=== PATIENT | female | born 1935 | race African-American/Black ===

== ENCOUNTER 2017-10-26 12:20 | Inpatient (IN) | payer OTHER ==
[~2017-10-26] VITALS: Ht 157.5 cm; Wt 115.7 kg
--- NOTE | ~2017-10-26 | 2DMMODE ---
[facility] [address] [place] [address] 2 D/M-MODE ECHOCARDIOGRAM Name: BAILEYEZIO Room #: 441-P ADM IN M.R.#: [id number] Admission: 10/26/17 Attend Phys: Fredrick Mccoy MD Discharge: Date of : 31 Date of Service: 10/27/17 1039 Report #: [id number] THIS REPORT FOR: //name// APPROVED REPORT Study performed: 10/27/2017 09:16:41 EXAM: Comprehensive 2D, Doppler, and color-flow Echocardiogram Patient Location: Bedside Room #: [facility] Status: routine BSA: 2.12 HR: 68 bpm BP: 121/68 mmHg Other Information Study Quality: Fair Indications Dyspnea 2D Dimensions RVDd: 38.08 mm LVEF(%): 59.85 (>50%) IVSd: 10.40 (7-11mm) LVOT Diam: 22.03 (18-24mm) LVDd: 50.48 mm PWd: 10.51 (7-11mm) Ascending Ao: 36.29 (22-36mm) LVDs: 34.32 (25-40mm) Aortic Root: 36.74 mm IVC: 21.00 mm Andres's LVEF: 59.85 % Volumes Left Atrial Volume (Systole) Single Plane 4CH: 38.74 mL Single Plane 2CH: 31.02 mL LA ESV Index: 19.00 mL/m2 Aortic Valve AoV Peak Adama.: 1.41 m/s AO Peak Gr.: 7.95 mmHg LVOT Max P.30 mmHg LVOT Max V: 1.26 m/s CHRIS Vmax: 3.39 cm2 Mitral Valve E/A Ratio: 0.7 MV Decel. Time: 411.57 ms MV E Max Adama.: 0.71 m/s [facility] [place] [address] 2 D/M-MODE ECHOCARDIOGRAM Name: EZIO BAILEY Room #: 441-P [facility] IN .R.#: [id number] Admission: 10/26/17 Attend Phys: Fredrick Mccoy MD Discharge: Date of : 31 Date of Service: 10/27/17 1039 Report #: [id number] MV A Adama.: 1.01 m/s MV PHT: 119.36 ms IVRT: 138.41 ms Pulmonary Valve PV Peak Adama.: 0.96 m/s PV Peak Gr.: 3.71 mmHg Pulmonary Vein P Vein S: 0.51 m/s P Vein A: 0.31 m/s P Vein D: 0.36 m/s P Vein A Dur.: 166.1 msec P Vein S/D Ratio: 1.42 Tricuspid Valve TR Peak Adama.: 2.94 m/s TR Peak Gr.: 34.53 mmHg PA Pressure: 45.00 mmHg Left Ventricle The left ventricle is normal size. There is normal LV segmental wall motion. There is normal left ventricular wall thickness. The left ventricular systolic function is normal. The left ventricular ejection fraction is within the normal range. LVEF is 60-65%. Grade I - abnormal relaxation pattern. Right Ventricle The right ventricle is normal size. The right ventricular systolic function is normal. Atria The left atrium size is normal. The right atrium size is normal. Aortic Valve The aortic valve is mildly sclerotic No aortic regurgitation is present. There is no aortic valvular stenosis. Mitral Valve The mitral valve is normal in structure. Trace mitral regurgitation. No evidence of mitral valve stenosis. Tricuspid Valve The tricuspid valve is normal in structure. There is trace tricuspid regurgitation. The right atrial pressure is estimated at 40mmHg. There is moderate pulmonary hypertension. Pulmonic Valve [address] [address] 2 D/M-MODE ECHOCARDIOGRAM Name: EZIO BAILEY Room #: 441-P [facility] IN ..#: [id number] Admission: 10/26/17 Attend Phys: Fredrick Mccoy MD Discharge: Date of : 31 Date of Service: 10/27/17 1039 Report #: [id number] The pulmonary valve is normal in structure. Trace pulmonic regurgitation. Great Vessels The aortic root is normal in size. IVC is dilated and collapses >50% with inspiration. Pericardium There is no pericardial effusion. <Conclusion> The left ventricular systolic function is normal. There is normal LV segmental wall motion. LVEF is 60-65%. Grade I diastolic dysfunction The aortic valve is mildly sclerotic. No aortic regurgitation or stenosis The mitral valve is normal in structure. Trace mitral regurgitation. Pulmonary artery pressure of 40mmHg No pericardial effusion <ELECTRONICALLY SIGNED> By: Wesly Bowers MD, FACC 10/27/17 1039 1039 1039 Wesly Bowers MD, FACC /INF
--- NOTE | ~2017-10-26 | D ---
[facility] [place] [address] DISCHARGE SUMMARY Name: EZIO BAILEY Room #: 441-P [facility] IN M.R.#: [id number] Admission: 10/26/17 Attend Phys: Fredrick Mccoy MD Discharge: 10/31/17 Date of : 33 Report #: [id number] THIS REPORT FOR: //name// CC: Fredrick FREDERICK unknown DATE OF SERVICE: 10/31/2017 HISTORY OF PRESENT ILLNESS: The patient is an 82-year-old female with no major health problems, who came to the hospital with generalized weakness. Please refer to the admission H and P for details. In brief, the patient had generalized weakness, and no other specific complaints. On examination, the patient was found to have bilateral lower extremity edema. CHF was also suspected. HOSPITALIZATION COURSE: The patient was hospitalized. She had cardiac echo that showed normal ejection fraction, and diastolic dysfunction. Pulmonary artery pressure was moderately elevated. Based on clinical presentation, the patient was already started on IV Lasix. She had very good response. Lower extremity swelling eventually resolved. The patient felt better. The patient was seen and evaluated by Physical Therapy. She was also seen by geriatrics team. Due to her age, morbid obesity, and self-care deficit, it was advised to transfer the patient to the long term facility for further rehab. Currently, the patient's condition is acceptable as documented in the patient's chart. DISCHARGE DIAGNOSES: 1. Generalized weakness, multifactorial, including morbid obesity, and advanced age. Normal TSH, and no major abnormalities on the blood work. 2. Self-care deficit. 3. Congestive heart failure with diastolic dysfunction. Cardiac echo showed left ventricular ejection fraction of 65%, grade 1 diastolic dysfunction and mild pulmonary hypertension. Good response on Lasix. 4. Hypokalemia, we will replace. DISCHARGE MEDICATIONS: Lasix 40 mg a day, potassium supplementation 20 mEq a day, multivitamins per home regimen. DISPOSITION: The patient is discharged to the long term facility. [facility] [address] [place] [address] DISCHARGE SUMMARY Name: LYNNEZIO Eduarda Room #: 441-P [facility]#: [id number] Admission: 10/26/17 Attend Phys: Fredrick Mccoy MD Discharge: 10/31/17 Date of : 31 Report #: [id number] FOLLOWUP PLAN: Follow up with the primary care physician in 1-2 weeks. <ELECTRONICALLY SIGNED> By: Trupti Ghosh MD 11/01/17 0746 0917 0932 Trupti Ghosh MD /nt
[2017-10-26 12:20] VITALS: BP 148/85
[~2017-10-26 12:20] MED LIST: CENTRUM COMPLE1 EACH PO; COUMADIN PO; DRONABINOL5 MG PO; FLORANEX TABLE1 EACH PO; JUVEN PACKET1 EACH PO; MAG-OX 400 TAB400 M1 PO; NEURONTIN 300300 M1 PO; OXYCODONE HCL5 M1 PO; POTASSIUM CHLO20 ME1 PO; QUESTRAN PACKET4 GM PO; REMERON15 M1 PO; VENTOLIN17 GM INH; VITAMIN C + RO500 MG PO; VITAMIN D 11000 UNIT PO; ZINC SULFATE 2220 M1 PO
[2017-10-26 13:47] LABS: HEMATOCRIT 34.9 % (37.0-47.0); HEMOGLOBIN 11.3 gm/dL (12.0-15.0); MCH 24.7 pg (26.0-34.0); MCHC 32.3 g/dL (28.0-37.0); MCV 76.5 fL (80.0-100.0); RBC 4.56 mil/uL (4.20-5.00); RDW 15.8 % (10.5-14.5); WBC 5.9 thou/uL (4.0-11.0)
[2017-10-26 14:00] LABS: PROTIME 10.7 Seconds (9.3-11.4)
[2017-10-26 15:14] VITALS: BP 119/87
[2017-10-26 15:24] VITALS: BP 131/76
[2017-10-26 16:42] VITALS: BP 152/73
[2017-10-26 20:11] VITALS: BP 119/59
[2017-10-27 00:26] VITALS: BP 121/62
[2017-10-27 05:22] VITALS: BP 121/68
[2017-10-27 05:25] VITALS: BP 121/68
[2017-10-27 05:47] LABS: MCH 24.8 pg (26.0-34.0); MCHC 32.3 g/dL (28.0-37.0); MCV 76.7 fL (80.0-100.0); RBC 4.04 mil/uL (4.20-5.00); RDW 15.5 % (10.5-14.5); WBC 5.2 thou/uL (4.0-11.0)
[2017-10-27 06:00] LABS: CALCIUM 9.1 mg/dL (8.5-10.1); CREATININE 0.6 mg/dL (0.6-1.0); POTASSIUM 3.9 mmol/L (3.5-5.1)
[2017-10-27 07:12] VITALS: BP 121/65
[2017-10-27 14:12] LABS: TSH 0.293 uIU/mL (0.358-3.740)
[2017-10-27 15:50] VITALS: BP 127/68
[2017-10-27 16:49] LABS: ALBUMIN 3.3 g/dL (3.4-5.0); CALCIUM 9.5 mg/dL (8.5-10.1); CREATININE 0.7 mg/dL (0.6-1.0); MAGNESIUM 1.8 mg/dL (1.8-2.4); TOTAL BILIRUBIN 0.5 mg/dL (<0.1-1.0); TOTAL PROTEIN 6.2 g/dL (6.4-8.2)
[2017-10-27 20:16] VITALS: BP 134/69
[2017-10-28 04:50] VITALS: BP 131/68
[2017-10-28 07:05] VITALS: BP 133/70
[2017-10-28 15:42] VITALS: BP 127/72
[2017-10-28 18:48] VITALS: BP 127/70
[2017-10-29 03:14] VITALS: BP 140/62
[2017-10-29 06:52] LABS: CALCIUM 9.9 mg/dL (8.5-10.1); CREATININE 0.7 mg/dL (0.6-1.0); POTASSIUM 3.2 mmol/L (3.5-5.1)
[2017-10-29 15:35] VITALS: BP 125/78
[2017-10-29 19:37] VITALS: BP 143/78
[2017-10-30 05:08] VITALS: BP 150/90
[2017-10-30 07:35] VITALS: BP 129/68
[2017-10-30 17:00] VITALS: BP 121/56
[2017-10-30 19:23] VITALS: BP 112/69
[2017-10-31 05:35] VITALS: BP 97/55
[2017-10-31 06:37] LABS: CALCIUM 9.9 mg/dL (8.5-10.1); CREATININE 0.6 mg/dL (0.6-1.0); POTASSIUM 3.5 mmol/L (3.5-5.1)
[2017-10-31 07:09] VITALS: BP 114/65
[2017-10-31] MEDS ORDERED: LASIX 40 MG TAB40 M1 PO (09:20)
[2017-10-31] MEDS ORDERED: MIRALAX17 GM PO (09:20)
[2017-10-31] MEDS ORDERED: POTASSIUM20 PO (09:20)
[2017-10-31 16:20] VITALS: BP 127/77
== END 2017-10-31 18:58 | DRG 553 ==
LOC: ER 12:20 → EROBS 15:10 → 4S 15:10
PROVIDERS: Hospitalist; Internal Medicine Endocrinology, Diabetes & Metabolism; Physician Assistant; Registered Nurse
DX: M19.90 Unspecified osteoarthritis, unspecified site (principal); I50.31 Acute diastolic (congestive) heart failure; Z68.42 Body mass index [BMI] 45.0-49.9, adult; E44.1 Mild protein-calorie malnutrition; I11.0 Hypertensive heart disease with heart failure; Z60.2 Problems related to living alone; E66.01 Morbid (severe) obesity due to excess calories; E87.6 Hypokalemia; Z86.718 Personal history of other venous thrombosis and embolism
CPT/HCPCS: 10195

== ENCOUNTER 2017-12-19 17:26 | Emergency (ER) | payer OTHER ==
[~2017-12-19 17:26] MED LIST changes: +LASIX 40 MG TAB40 M1 PO; +MIRALAX17 GM PO; +POTASSIUM20 PO
[2017-12-19 17:27] VITALS: BP 141/85
[2017-12-19] MEDS ORDERED: MEDROLDOSEPACK PO (19:17)
[2017-12-19] MEDS ORDERED: LIORESAL 10 MG10 MG PO (19:17)
[2017-12-19] MEDS ORDERED: HYDROCODONE-AP1 EAC6 PO (19:17)
[2018-06-07] MEDS ORDERED: MACROBID 100 M100 M3 PO (02:48)
[2018-06-09] MEDS ORDERED: PROTONIX 20 MG20 M1 PO (08:38)
[2018-06-09] MEDS ORDERED: IBUPROFEN 400400 M2 PO (08:38)
== END 2017-12-19 23:09 | disposition home or self-care (01) ==
LOC: ER 17:26
DX: M54.32 Sciatica, left side (principal); M19.90 Unspecified osteoarthritis, unspecified site; Z87.01 Personal history of pneumonia (recurrent)

== ENCOUNTER 2018-08-19 12:36 | Inpatient (IN) | payer OTHER ==
[~2018-08-19] VITALS: Ht 157.5 cm; Wt 93.9 kg
--- NOTE | ~2018-08-19 | EKG ---
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1935 Requested By: Snow Acevedo Order Number: [id number] MD: Wesly Bowers Measurements Intervals [place] Rate: 99 P: 53 IN: 177 QRS: -75 QRSD: 102 T: 17 QT: 402 QTc: 516 Interpretive Statements Sinus tachycardia Ventricular premature complexes Inferolateral infarct, age indeterminate Prolonged QT interval Compared to ECG 06/06/2018 22:57:57 Ventricular premature complex(es) now present Criteria for inferolateral infarct are now present Electronically Signed On 08-20-2018 8:17:26 CDT by Wesly Bowers [email or web address] <ELECTRONICALLY SIGNED> By: Wesly Bowers MD, [facility] 08/20/18 0817 1402 1402 Wesly Bowers MD, [facility] /EPI
--- NOTE | ~2018-08-19 | HC ---
[facility] [address] [address] CONSULTATION Name: EZIO BAILEY Room #: 421-P ADM IN M.R.#: [id number] Admission: 08/19/18 Attend Phys: Mehul Fournier MD Discharge: Date of : 33 Report #: [id number] THIS REPORT FOR: //name// CC: YOLY physician/PCP Mehul Fournier The patient of Dr. Fournier, [facility], room 421. SUBJECTIVE: An 83-year-old black female with a history of recent constipation admitted for small-bowel obstruction. The patient was found to have abnormal thyroid function studies and a thyroid nodule on ultrasound. Retrospectively, the patient states that "many years ago" after a , she had apparently a hemithyroidectomy for unknown disease. She has never been on thyroid replacement and her thyroid function has apparently never been reevaluated. The patient has no other family history of thyroid or endocrine disease. At admission, the patient had hypercalcemia and hypophosphatemia, which appears to be resolving with rehydration. Thyroid ultrasound showed a 3-cm solid right thyroid nodule without other elements being described. Thyroid function studies showed an elevated free T4 of 1.8 and a depressed TSH of 0.154. The TSH was also abnormal, but less so when last checked in October. Historically, the patient has no signs or symptoms of hyperthyroidism. She has not been on amiodarone or any other conflicting substances. CURRENT MEDICATIONS: At the time of consultation are as per chart. OBJECTIVE: LABORATORY DATA: As above. PHYSICAL EXAMINATION: Thin 83-year-old black female in no acute distress. The patient is afebrile, heart rate 89 and regular, blood pressure 120/76. Skin is warm and moist with slightly decreased turgor. Deep tendon reflexes are 2+ and equal bilaterally. There is no evident ophthalmopathy. The thyroid is small and freely movable without palpable nodularity or adenopathy and the gland moves well with deglutition. IMPRESSION: 1. Hypercalcemia, most likely secondary to dehydration and immobilization and it should clear with time and rehydration. 2. Thyroid nodule, which may be the result of long-term mild hypothyroidism post-surgical from many years ago without replacement, but there is no way to ensure this conclusively without further evaluation. 3. Abnormal thyroid function studies, most likely indicating hyperthyroidism. PLAN: 1. We will monitor lab with rehydration. 2. We will recheck thyroid function studies [place] [address] CONSULTATION Name: EZIO BAILEY Room #: 421-P [facility] IN M.R.#: [id number] Admission: 08/19/18 Attend Phys: Mehul Fournier MD Discharge: Date of : 33 Report #: [id number] 3. Would agree with thyroid biopsy only because of the relatively large size of the nodule while it is likely this is due to hypertrophy, post partial thyroidectomy and I am not sure that the patient is an appropriate surgical candidate. Should malignancy be discovered, the biopsy should probably be performed. 4. Meanwhile if thyroid function studies continue to be abnormal, would probably institute antithyroid medication and follow up at a later date. Thank you very much for this consultation. I will continue to follow the patient with you for evaluation and treatment of thyroid disease. <ELECTRONICALLY SIGNED> By: Arslan Lala MD 08/22/18 0829 1351 1917 Arslan Lala MD /nt
--- NOTE | ~2018-08-19 | O ---
[facility] [place] [address] OPERATIVE REPORT Name: EZIO BAILEY Room #: 421-P [facility] IN M.R.#: [id number] Admission: 08/19/18 Attend Phys: Mehul Fournier MD Discharge: 09/04/18 Date of : 33 Report #: [id number] THIS REPORT FOR: //name// CC: YOLY physician/PCP Mehul Fournier DATE OF SERVICE: 08/24/2018 PREOPERATIVE DIAGNOSES: 1. Morbid obesity. 2. Incarcerated ventral hernia with small-bowel obstruction. POSTOPERATIVE DIAGNOSES: 1. Morbid obesity. 2. Incarcerated ventral hernia with small-bowel obstruction. 3. Loss of abdominal domain. 4. Ischemic/necrotic abdominal wall fascia. PROCEDURES PERFORMED: 1. Exploratory laparotomy with extensive lysis of adhesions. 2. Debridement of ischemic/necrotic abdominal wall fascia. 3. Complex abdominal wall reconstruction with open repair of an incarcerated ventral hernia with bioresorbable mesh. 4. Release of small-bowel obstruction. 5. Bilateral component separation. 6. Excision of redundant/ischemic skin. 7. Adjacent tissue transfer closure of the anterior abdominal wall measuring 38 x 35 cm in dimension (1330 cm2). 8. Placement of a topical wound VAC (Prevena) device. SURGEON: Debby Oconnell M.D. HELPDESK SPECIALIST: RITA Vega. ANESTHESIA: General endotracheal anesthesia. ESTIMATED BLOOD LOSS: Minimal (less than 20 mL). COMPLICATIONS: None appreciated. SPECIMENS: 1. Debrided abdominal wall fascia and hernia sac to pathology. 2. Excised skin to pathology. INDICATIONS: The patient is an 83-year-old obese female who presented with a small-bowel obstruction secondary to incarcerated loops of [address] [address] OPERATIVE REPORT Name: LYNNEZIO Room #: 421-P [facility] IN [facility]#: [id number] Admission: 08/19/18 Attend Phys: Mehul Fournier MD Discharge: 09/04/18 Date of : 33 Report #: [id number] small bowel contained within a ventral hernia defect. This was unable to be reduced and the defect was quite substantial and as such indication was for the above-mentioned procedures today with findings of loss of abdominal domain that required complex abdominal wall reconstruction techniques. DESCRIPTION OF PROCEDURE: After explaining the risks, benefits and alternatives of the procedure with the patient in detail in the preoperative holding area and obtaining written consent, the patient was brought to the operating room and placed supine on the operating room table. After conducting a thorough timeout procedure verifying correct patient and procedure, the patient was given general endotracheal anesthesia. Once adequate anesthesia was obtained, her SCDs were hooked up to pneumatic compression device and she was given a preoperative dose of antibiotics in line with the SCIP protocol. The patient's abdomen was prepped and draped in a standard surgical sterile fashion. A #10 bladed scalpel was used to create a longitudinal midline incision from the subxiphoid to suprapubic locations. Electrocautery was used to carry this down through skin and subcutaneous tissues to ensure hemostasis. I arrived upon the fascia in the superior most aspect and penetrated into the abdomen carefully by placing a finger into the abdomen through a small fascial opening and proceeded to open the entire fascia in a controlled setting to prevent injury to the bowel. Once this was carried inferiorly to the edge of the hernia defect, there was overtly incarcerated small bowel contained within. Once I opened the fascial ring, I was able to easily reduce the small bowel, which was pink and healthy. I continued to open the fascia until I had the entire abdominal wall opened and was able to run the small bowel on numerous occasions showing no evidence of serosal injuries, enterotomies or defects. All intra-abdominal adhesions were taken down and there were numerous from this longstanding hernia defect to the hernia sac. The abdominal wall fascia and the hernia sac appeared ischemic and necrotic and this was resected with electrocautery back to healthy vascularized tissue throughout. There was evidence of loss of abdominal domain at this juncture and attempts at medial mobilization of the fascia were unsuccessful with Livia clamps. I therefore created large skin flaps by debriding externally along the fascia as far laterally and superiorly and inferiorly as possible. I then scored on the lateral border of the rectus abdominis muscle bilaterally with electrocautery, performing an external oblique component separation. This allowed significant medial mobilization. I then closed the midline fascial wound using looped #1 PDS suture in standard running fashion. I then proceeded to buttress this repair with a Phasix onlay measuring 30 x 25 cm in dimension. This was tailored to fit the abdominal wall and was anchored into place using several sutures of 0 PDS as well as 30 mL of Tisseel. Two 19-Serbian round Nicholas-Valle drains were then placed in the subcutaneous space and anchored to the skin using 2-0 nylon in standard fashion. The patient did have significant redundancy of her periumbilical skin from this longstanding hernia and the skin was thinned out and nonviable, and as such I did perform skin reduction to tailor the abdominal wall appropriately. This was passed off the field as specimen as well. As the patient's abdominal wall was slightly thinned [facility] [address] [place] [address] OPERATIVE REPORT Name: EZIO BAILEY Room #: 421-P [facility]#: [id number] Admission: 08/19/18 Attend Phys: Mehul Fournier MD Discharge: 09/04/18 Date of : 33 Report #: [id number] down the midline, I did elect to perform adjacent tissue transfer closure of the anterior abdominal wall as well. The large skin flaps were elevated and counter incisions were made along the lateral border internally, which allowed me to immediately rotate vascularized pedicles of subcutaneous tissue, which were anchored down the midline using several interrupted inverted sutures of 3-0 Vicryl. Dermis was then approximated with interrupted inverted 3-0 Vicryl as well and skin was closed with skin antonieta. I did elect to place a topical wound VAC device (Prevena) on top of the patient's midline wound to assist in hopeful long-term wound healing. This was applied in standard fashion and there was no leak evident. An abdominal binder was then applied. At the end of the procedure all instrument, needle and sponge counts were correct. The patient tolerated the lengthy procedure without incident, was awakened in the operating room and transitioned to the recovery room in stable condition with no apparent complications. By: 1132 1154 Debby Oconnell MD, FACS /nt
--- NOTE | ~2018-08-19 | PATH ---
[facility] [place] [address] [place] [address] PATHOLOGY RPT PROCEDURE Name: [address] Eduarda Room #: 421-P ADM IN M.R.#: [id number] Admission: 08/19/18 Date of : 31 Discharge: Report #: [id number] Path Case #: [id number] [facility] Accession Number: [id number] . 01 Material submitted: . PART A: SKIN AND FASCIA-UMBILICAL HERNIA PART B: OMENTUM AND HERNIA SAC . 01 Clinician provided ICD-10: K42.9 . 01 Clinical history: . Incarcerated umbilical hernia with small bowel obstruction . 02 Diagnosis: A. Skin with underlying soft tissue, "skin and fascia": - Dermal edema and chronic inflammation and areas of hemorrhage and congestion. - There is no evidence of malignancy. . B. Fibroadipose tissue, "omentum and hernia sac, herniorrhaphy": - Chronic inflammation, congestion, and edema. . (LYNN:[place]; 08/27/2018) MBNoel/08/27/2018 . 02 Electronically signed: . Remington Rocha MD, Pathologist NPI- [id number] . 01 Gross description: . A. Received in formalin labeled "[address], skin and fascia" are two irregular portions of dark brown skin measuring 2.5 x 1.3 x 1.3 cm and 11.8 x 6.0 x 0.7 cm. The smaller portion of skin has underlying yellow-guzman lobulated fibroadipose tissue. The larger portion of skin has a guzman-white membranous deep surface. No nodules or masses are identified. Dry Roller sections are submitted in cassette A1. . B. Received in formalin labeled "[address], omentum and hernia sac" is a pink-guzman membranous hernia sac measuring 13.0 x 4.6 x 1.0 cm. The lining is smooth, and no masses or nodules are identified. Also present within the container is a portion of yellow-guzman finely lobulated fibroadipose tissue, consistent with omentum, which measures 18.5 x 13.8 x 1.6 cm. Upon sectioning, the cut surface is focally fibrotic without masses or nodules present. Dry Roller sections of the specimen are submitted in cassette B1. ([facility]; 08/26/2018) [facility]/[address] [address] PATHOLOGY RPT PROCEDURE Name: AM[address] Room #: 421-P ADM IN M.R.#: [id number] Admission: 08/19/18 Date of : 31 Discharge: Report #: [id number] Path Case #: [id number] . 02 Pathologist provided ICD-10: R60.9, M79.9, K42.9 . 02 CPT . 028576, [id number] Specimen Comment: A courtesy copy of this report has been sent to Specimen Comment: [phone], . Specimen Comment: Report sent to / DR MEJIA Performed at: [address] [facility], [place] [id number] MD Elias Lawler MD Phone: [phone] Performed at: [address] [facility] [id number] MD Adrianne Renner MD Phone: [phone]
--- NOTE | ~2018-08-19 | PATH ---
[facility] [place] [address] PATHOLOGY RPT PROCEDURE Name: EZIO BAILEY Room #: 421-P ADM IN M.R.#: [id number] Admission: 08/19/18 Date of : 33 Discharge: Report #: [id number] Path Case #: [id number] Note [facility] Accession Number: [id number] TESTS RESULT FLAG UNITS REF RANGE LAB Clinician Provided Cytology Information No. of containers..01 Other (Miscellaneous) Source: RIGHT THYROID DIAGNOSIS: RIGHT THYROID, FINE NEEDLE ASPIRATION NEGATIVE FOR MALIGNANT CELLS. BETHESDA CATEGORY II. SPECIMEN CONSISTS OF GROUPS OF FOLLICULAR CELLS, HEMOSIDERIN-LADEN MACROPHAGES, COLLOID, AND BLOOD, FAVOR A FOLLICULAR NODULE. THIS INTERPRETATION INCLUDES PREPARATION OF A CELL BLOCK. Comment: Examination shows abundant colloid and groups of follicular cells mostly in macrofollicles. Nuclear features of papillary carcinoma are not identified. Findings are suggestive of an adenomatoid or follicular nodule. The differential diagnosis includes follicular adenoma; however, the macrofollicles argue against one. 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 Correlate clinically and follow-up as indicated. Pathologist ICD10: 02 E04.1 Signed out by: 02 Adrianne Renner MD, Pathologist NPI- [id number] Performed by: 01 Kia Chu, Basin Finish Operator Tig Welder (ASCP) Gross description: 01 20ML, PINK, CLEAR /LCS FLAG LEGEND: L-Low Normal,H-High Normal,LL-Alert Low,HH-Alert High <-Panic Low,>-Panic High,A-Abnormal,AA-Critical Abnormal Performed at: 01 [facility] [address] [facility] [address] [place] [address] Elias Lawler MD, 02 [facility] [address] Adrianne Renner MD, Specimen Comment: A courtesy copy of this report has been sent to [address] [address] PATHOLOGY RPT PROCEDURE Name: LYNNEZIO Eduarda Room #: 421-P [facility] IN M.R.#: [id number] Admission: 08/19/18 Date of : 33 Discharge: Report #: [id number] Path Case #: [id number] Specimen Comment: [phone]. Specimen Comment: Report sent to Performed at: 01 [facility] [address] [facility] [address], [place], [place] [id number] MD Elias Lawler MD Phone: [phone]
[~2018-08-19 12:36] MED LIST changes: +HYDROCODONE-AP1 EAC6 PO; +IBUPROFEN 400400 M2 PO; +LIORESAL 10 MG10 MG PO; +MACROBID 100 M100 M3 PO; +MEDROLDOSEPACK PO; +PROTONIX 20 MG20 M1 PO
[2018-08-19 12:50] VITALS: BP 135/109
[2018-08-19] MEDS ORDERED: NORCO 5-325 TA1 EACH PO (12:58)
[2018-08-19] MEDS ORDERED: OMEPRAZOLE 20 M20 M1 PO (12:58)
[2018-08-19] MEDS ORDERED: LIDOCAINE PAIN1 EACH TP (12:59)
[2018-08-19] MEDS ORDERED: GAS-X125 MG PO (12:59)
[2018-08-19] MEDS ORDERED: MILK OF MA2400 MG/10 PO (13:00)
[2018-08-19] MEDS ORDERED: ONDANSETRON HCL4 M2 PO (13:00)
[2018-08-19] MEDS ORDERED: SENNA8.6 MG PO (13:00)
[2018-08-19 13:38] LABS: ABSOLUTE NEUTROPHILS 9.1 thou/uL (1.4-8.2); BASOPHILS 0.4 % (0.0-2.0); EOSINOPHILS 0.2 % (0.0-3.0); HEMATOCRIT 40.5 % (37.0-47.0); HEMOGLOBIN 13.3 gm/dL (12.0-15.0); LYMPHOCYTES 9.3 % (24.0-44.0); MCHC 32.7 g/dL (28.0-37.0); MCV 76.4 fL (80.0-100.0); MONOCYTES 10.3 % (1.0-8.0); PLATELET COUNT 191 thou/uL (150-400); POLYS 79.8 % (36.0-66.0); RDW 15.3 % (10.5-14.5); WBC 11.4 thou/uL (4.0-11.0)
[2018-08-19 13:51] LABS: ANION GAP 6 mmol/L (7-16); BUN 41 mg/dL (7-18); CHLORIDE 96 mmol/L (98-107); CO2 38 mmol/L (21-32); CREATININE 1.9 mg/dL (0.6-1.0); GLUCOSE 113 mg/dL (74-106); SODIUM 140 mmol/L (136-145)
[2018-08-19 13:55] LABS: POTASSIUM 4.2 mmol/L (3.5-5.1)
[2018-08-19 13:57] LABS: CALCIUM 12.2 mg/dL (8.5-10.1)
[2018-08-19 13:59] LABS: ALBUMIN 3.6 g/dL (3.4-5.0); LIPASE 154 U/L (73-393); SGOT 36 U/L (15-37); SGPT 31 U/L (30-65); TOTAL BILIRUBIN 1.9 mg/dL (<0.1-1.0); TOTAL PROTEIN 7.8 g/dL (6.4-8.2); TROPONIN-I <0.06 ng/mL (<0.06)
[2018-08-19 15:42] VITALS: BP 147/90
[2018-08-19 17:48] VITALS: BP 117/79
[2018-08-19 18:16] LABS: ALBUMIN 3.5 g/dL (3.4-5.0); TOTAL PROTEIN 6.9 g/dL (6.4-8.2)
[2018-08-19 18:41] LABS: TSH 0.154 uIU/mL (0.358-3.740)
[2018-08-19 20:00] VITALS: BP 129/100
[2018-08-20 00:25] LABS: URINE BLOOD 3+ (Negative); URINE CLARITY CLOUDY; URINE COLOR YELLOW; URINE GLUCOSE-RANDOM* NEGATIVE (Negative); URINE KETONES 1+ (Negative); URINE NITRITE-REFLEX NEGATIVE (Negative); URINE PROTEIN (DIPSTICK) 2+ (Negative); URINE SPECIFIC GRAVITY >= 1.030 (1.005-1.035)
[2018-08-20 00:28] LABS: ICTOTEST (BILI CONFIRMATORY) Negative (Negative); URINE BILIRUBIN NEGATIVE (Negative); URINE LEUKOCYTES-REFLEX 3+ (Negative)
[2018-08-20 00:29] LABS: CASTS None Seen /LPF (None Seen); CRYSTALS None Seen /LPF (None Seen); SQUAMOUS 0-3 Few /LPF (0-3); URINE RBC 3-10 Few /HPF (0-2); URINE WBC-REFLEX >25 Many /HPF (0-5); WBC CLUMPS Many (None Seen)
[2018-08-20 04:00] VITALS: BP 106/83
[2018-08-20 04:31] LABS: HEMATOCRIT 36.1 % (37.0-47.0); HEMOGLOBIN 11.6 gm/dL (12.0-15.0); MCH 24.9 pg (26.0-34.0); MCHC 32.3 g/dL (28.0-37.0); MCV 77.1 fL (80.0-100.0); RBC 4.68 mil/uL (4.20-5.00); RDW 15.2 % (10.5-14.5)
[2018-08-20 04:46] LABS: CALCIUM 10.6 mg/dL (8.5-10.1); CREATININE 1.4 mg/dL (0.6-1.0); MAGNESIUM 2.3 mg/dL (1.8-2.4)
[2018-08-20 04:52] LABS: % SATURATION 31 % (20-39); IRON 50 ug/dL (50-170); TIBC 160 ug/dL (250-450)
[2018-08-20 04:56] LABS: POTASSIUM 2.7 mmol/L (3.5-5.1)
[2018-08-20 07:26] VITALS: BP 123/86
[2018-08-20 13:35] LABS: ALBUMIN 2.9 g/dL (3.4-5.0); DIRECT BILIRUBIN 0.8 mg/dL (<0.1-0.3); TOTAL BILIRUBIN 1.4 mg/dL (<0.1-1.0); TOTAL PROTEIN 6.3 g/dL (6.4-8.2)
[2018-08-20 16:25] VITALS: BP 118/73
[2018-08-20 19:39] VITALS: BP 116/61
[2018-08-21 04:21] VITALS: BP 137/95
[2018-08-21 04:23] LABS: HEMATOCRIT 36.5 % (37.0-47.0); HEMOGLOBIN 11.5 gm/dL (12.0-15.0); MCH 24.5 pg (26.0-34.0); MCHC 31.5 g/dL (28.0-37.0); MCV 77.9 fL (80.0-100.0); RBC 4.69 mil/uL (4.20-5.00); RDW 15.3 % (10.5-14.5); WBC 8.8 thou/uL (4.0-11.0)
[2018-08-21 04:40] LABS: CALCIUM 10.3 mg/dL (8.5-10.1); CREATININE 0.8 mg/dL (0.6-1.0); MAGNESIUM 2.2 mg/dL (1.8-2.4); POTASSIUM 3.3 mmol/L (3.5-5.1)
[2018-08-21 08:46] LABS: ALBUMIN 2.9 g/dL (3.4-5.0); DIRECT BILIRUBIN 0.8 mg/dL (<0.1-0.3); TOTAL BILIRUBIN 1.5 mg/dL (<0.1-1.0); TOTAL PROTEIN 6.3 g/dL (6.4-8.2)
[2018-08-21 10:28] LABS: CALCIUM 10.4 mg/dL (8.5-10.1); CREATININE 0.8 mg/dL (0.6-1.0); PHOSPHORUS 2.1 mg/dL (2.5-4.9)
[2018-08-21 11:09] VITALS: BP 119/76
[2018-08-21 16:18] VITALS: BP 136/69
[2018-08-21 19:52] VITALS: BP 126/67
[2018-08-22 05:30] VITALS: BP 118/72
[2018-08-22 06:25] LABS: HEMATOCRIT 34.4 % (37.0-47.0); HEMOGLOBIN 11.2 gm/dL (12.0-15.0); MCH 25.4 pg (26.0-34.0); MCHC 32.5 g/dL (28.0-37.0); MCV 78.2 fL (80.0-100.0); RBC 4.4 mil/uL (4.20-5.00); RDW 15.3 % (10.5-14.5)
[2018-08-22 06:45] LABS: CALCIUM 10.3 mg/dL (8.5-10.1); CREATININE 0.7 mg/dL (0.6-1.0); POTASSIUM 3.8 mmol/L (3.5-5.1)
[2018-08-22 09:09] VITALS: BP 132/81
[2018-08-22 20:29] VITALS: BP 118/70
[2018-08-23 05:27] VITALS: BP 119/78
[2018-08-23 06:20] LABS: HEMOGLOBIN 10.9 gm/dL (12.0-15.0); MCH 25.2 pg (26.0-34.0); MCHC 32.1 g/dL (28.0-37.0); MCV 78.4 fL (80.0-100.0); RBC 4.33 mil/uL (4.20-5.00); RDW 15.2 % (10.5-14.5); WBC 7.2 thou/uL (4.0-11.0)
[2018-08-23 06:36] LABS: ALBUMIN 2.6 g/dL (3.4-5.0); CREATININE 0.6 mg/dL (0.6-1.0); PHOSPHORUS 2.8 mg/dL (2.5-4.9); POTASSIUM 3.4 mmol/L (3.5-5.1); TOTAL BILIRUBIN 1.7 mg/dL (<0.1-1.0); TOTAL PROTEIN 5.7 g/dL (6.4-8.2)
[2018-08-23 07:27] VITALS: BP 131/79
[2018-08-23 16:42] VITALS: BP 131/81
[2018-08-23 18:09] LABS: GLOBULIN TOTAL 2.6 g/dL (2.2-3.9); M-SPIKE Not Observed g/dL (Not Observed)
[2018-08-23 20:00] VITALS: BP 124/72
[2018-08-24 05:01] VITALS: BP 131/69
[2018-08-24 06:05] LABS: HEMATOCRIT 33.2 % (37.0-47.0); HEMOGLOBIN 10.8 gm/dL (12.0-15.0); MCH 25.2 pg (26.0-34.0); MCHC 32.6 g/dL (28.0-37.0); MCV 77.4 fL (80.0-100.0); RBC 4.29 mil/uL (4.20-5.00); RDW 14.9 % (10.5-14.5); WBC 8.1 thou/uL (4.0-11.0)
[2018-08-24 06:16] LABS: CALCIUM 9.4 mg/dL (8.5-10.1); CREATININE 0.5 mg/dL (0.6-1.0); PHOSPHORUS 2.8 mg/dL (2.5-4.9); POTASSIUM 3.8 mmol/L (3.5-5.1)
[2018-08-24 07:06] VITALS: BP 131/75
[2018-08-24 08:10] LABS: THYROGLOBULIN 199.2 ng/mL (1.5-38.5); THYROGLOBULIN AB SCREEN <1.0 IU/mL (0.0-0.9)
[2018-08-24 13:00] VITALS: BP 134/85
[2018-08-24 16:02] VITALS: BP 132/82
[2018-08-24 19:15] VITALS: BP 121/82
[2018-08-25 04:00] VITALS: BP 115/74
[2018-08-25 05:01] LABS: HEMATOCRIT 32.7 % (37.0-47.0); HEMOGLOBIN 10.7 gm/dL (12.0-15.0); MCHC 32.7 g/dL (28.0-37.0); MCV 76.4 fL (80.0-100.0); RBC 4.28 mil/uL (4.20-5.00); RDW 14.9 % (10.5-14.5); WBC 12.2 thou/uL (4.0-11.0)
[2018-08-25 05:16] LABS: CALCIUM 9.6 mg/dL (8.5-10.1); CREATININE 0.6 mg/dL (0.6-1.0); PHOSPHORUS 2.5 mg/dL (2.5-4.9); POTASSIUM 4.5 mmol/L (3.5-5.1)
[2018-08-25 07:47] VITALS: BP 146/87
[2018-08-25 19:06] VITALS: BP 126/70
[2018-08-26 04:30] VITALS: BP 148/85
[2018-08-26 07:03] VITALS: BP 117/74
[2018-08-26 07:26] LABS: HEMOGLOBIN 9.9 gm/dL (12.0-15.0); MCH 25.4 pg (26.0-34.0); MCHC 32.9 g/dL (28.0-37.0); MCV 77.3 fL (80.0-100.0); PLATELET COUNT 82 thou/uL (150-400); RBC 3.88 mil/uL (4.20-5.00); RDW 14.9 % (10.5-14.5); WBC 10.5 thou/uL (4.0-11.0)
[2018-08-26 07:41] LABS: CALCIUM 9.9 mg/dL (8.5-10.1); CREATININE 0.4 mg/dL (0.6-1.0); MAGNESIUM 1.7 mg/dL (1.8-2.4); PHOSPHORUS 2.2 mg/dL (2.5-4.9); POTASSIUM 4.1 mmol/L (3.5-5.1)
[2018-08-26 08:10] LABS: ABSOLUTE NEUTROPHILS 7.5 thou/uL (1.4-8.2); PLATELET ESTIMATE SLIGHTLY DECREASED
[2018-08-26 19:50] VITALS: BP 113/64
[2018-08-27 05:59] LABS: HEMATOCRIT 27.7 % (37.0-47.0); MCHC 32.6 g/dL (28.0-37.0); MCV 76.6 fL (80.0-100.0); PLATELET COUNT 96 thou/uL (150-400); RBC 3.62 mil/uL (4.20-5.00); RDW 15.1 % (10.5-14.5)
[2018-08-27 06:15] LABS: CALCIUM 9.4 mg/dL (8.5-10.1); CREATININE 0.4 mg/dL (0.6-1.0); MAGNESIUM 1.9 mg/dL (1.8-2.4); PHOSPHORUS 2.8 mg/dL (2.5-4.9); POTASSIUM 3.9 mmol/L (3.5-5.1)
[2018-08-27 06:25] VITALS: BP 120/69
[2018-08-27 07:55] LABS: ABSOLUTE NEUTROPHILS 4.4 thou/uL (1.4-8.2)
[2018-08-27 07:56] LABS: ANISOCYTOSIS 1+; HYPOCHROMASIA 1+; POLYCHROMASIA OCCASIONAL
[2018-08-27 09:48] VITALS: BP 120/60
[2018-08-27 16:00] VITALS: BP 135/66
[2018-08-27 20:35] VITALS: BP 106/61
[2018-08-28 04:51] VITALS: BP 111/59
[2018-08-28 07:34] VITALS: BP 120/61
[2018-08-28 08:27] LABS: CALCIUM 9.5 mg/dL (8.5-10.1); CREATININE 0.4 mg/dL (0.6-1.0); TOTAL PROTEIN 5.1 g/dL (6.4-8.2)
[2018-08-28 16:36] VITALS: BP 126/66
[2018-08-28 19:52] VITALS: BP 125/63
[2018-08-29 04:10] VITALS: BP 119/64
[2018-08-29 07:38] LABS: HEMATOCRIT 26.9 % (37.0-47.0); HEMOGLOBIN 8.9 gm/dL (12.0-15.0); MCH 25.4 pg (26.0-34.0); MCHC 33.1 g/dL (28.0-37.0); MCV 76.9 fL (80.0-100.0); RBC 3.49 mil/uL (4.20-5.00); RDW 14.7 % (10.5-14.5); WBC 6.6 thou/uL (4.0-11.0)
[2018-08-29 07:44] VITALS: BP 130/70
[2018-08-29 07:48] LABS: CALCIUM 9.7 mg/dL (8.5-10.1); CREATININE 0.4 mg/dL (0.6-1.0); POTASSIUM 3.8 mmol/L (3.5-5.1)
[2018-08-29 16:49] VITALS: BP 139/67
[2018-08-29 19:20] VITALS: BP 143/77
[2018-08-30 03:55] VITALS: BP 125/60
[2018-08-30 05:13] LABS: CALCIUM 9.4 mg/dL (8.5-10.1); CREATININE 0.3 mg/dL (0.6-1.0); MAGNESIUM 1.7 mg/dL (1.8-2.4); PHOSPHORUS 3.3 mg/dL (2.5-4.9); POTASSIUM 3.8 mmol/L (3.5-5.1)
[2018-08-30 07:09] VITALS: BP 131/67
[2018-08-30 17:51] VITALS: BP 131/62
[2018-08-30 19:40] VITALS: BP 126/58
[2018-08-31 04:21] VITALS: BP 126/58
[2018-08-31 07:46] VITALS: BP 128/53
[2018-08-31 19:43] VITALS: BP 120/64
[2018-09-01 05:51] LABS: HEMATOCRIT 26.5 % (37.0-47.0); HEMOGLOBIN 8.8 gm/dL (12.0-15.0); MCH 25.6 pg (26.0-34.0); MCHC 33.3 g/dL (28.0-37.0); MCV 76.9 fL (80.0-100.0); RBC 3.44 mil/uL (4.20-5.00); RDW 14.8 % (10.5-14.5); WBC 7.7 thou/uL (4.0-11.0)
[2018-09-01 06:08] LABS: CALCIUM 9.5 mg/dL (8.5-10.1); CREATININE 0.4 mg/dL (0.6-1.0)
[2018-09-01 09:10] VITALS: BP 126/63
[2018-09-01 10:34] VITALS: BP 126/63
[2018-09-01 17:40] VITALS: BP 126/66
[2018-09-01 19:45] VITALS: BP 127/63
[2018-09-02 04:35] VITALS: BP 116/61
[2018-09-02 10:38] VITALS: BP 116/61
[2018-09-02 20:47] VITALS: BP 130/53
[2018-09-03 04:48] VITALS: BP 120/60
[2018-09-03 07:18] VITALS: BP 104/52
[2018-09-03] MEDS ORDERED: LASIX 40 MG TAB40 M1 PO (12:32)
[2018-09-03 16:03] VITALS: BP 125/63
[2018-09-03 19:48] VITALS: BP 126/61
[2018-09-04 04:04] VITALS: BP 125/57
[2018-09-04 07:27] VITALS: BP 107/41
[2018-09-04 16:18] VITALS: BP 129/83
[2018-09-04] MEDS ORDERED: METHIMAZOLE10 MG PO (17:47)
== END 2018-09-04 18:33 | DRG 335 ==
LOC: ER 12:36 → 4E 14:44 → EROBS 14:44 → 4E 17:48
PROVIDERS: Hospitalist; Internal Medicine; Internal Medicine Endocrinology, Diabetes & Metabolism; Physician Assistant; Surgery
DX: K43.6 Other and unspecified ventral hernia with obstruction, without gangrene (principal); N17.0 Acute kidney failure with tubular necrosis; I50.30 Unspecified diastolic (congestive) heart failure; E46 Unspecified protein-calorie malnutrition; N39.0 Urinary tract infection, site not specified; K80.10 Calculus of gallbladder with chronic cholecystitis without obstruction; K42.0 Umbilical hernia with obstruction, without gangrene; M19.90 Unspecified osteoarthritis, unspecified site; M10.9 Gout, unspecified; Z66 Do not resuscitate; M62.84 Sarcopenia; M54.30 Sciatica, unspecified side; K21.9 Gastro-esophageal reflux disease without esophagitis; E83.42 Hypomagnesemia; M25.561 Pain in right knee; E87.6 Hypokalemia; E05.90 Thyrotoxicosis, unspecified without thyrotoxic crisis or storm; K59.00 Constipation, unspecified; F32.9 Major depressive disorder, single episode, unspecified; E83.52 Hypercalcemia; E86.0 Dehydration; E04.1 Nontoxic single thyroid nodule; I11.0 Hypertensive heart disease with heart failure; Z68.37 Body mass index [BMI] 37.0-37.9, adult; Z87.81 Personal history of (healed) traumatic fracture; Z86.718 Personal history of other venous thrombosis and embolism; Z87.01 Personal history of pneumonia (recurrent); Z99.3 Dependence on wheelchair; Z79.899 Other long term (current) drug therapy
CPT/HCPCS: 10183; 27000; 50010; 50093; 50101; 50386; 50953; 51412; 51437; 56524; 56527; 57092; 57190; 62110; 62900; 70005

== ENCOUNTER 2019-06-16 16:58 | Inpatient (IN) | payer OTHER ==
[~2019-06-16] VITALS: Ht 157.5 cm; Wt 96.6 kg
[2019-06-16 16:58] VITALS: BP 117/69
[~2019-06-16 16:58] MED LIST changes: +GAS-X125 MG PO; +LIDOCAINE PAIN1 EACH TP; +METHIMAZOLE10 MG PO; +MILK OF MA2400 MG/10 PO; +NORCO 5-325 TA1 EACH PO; +OMEPRAZOLE 20 M20 M1 PO; +ONDANSETRON HCL4 M2 PO; +SENNA8.6 MG PO
[2019-06-16 17:29] LABS: ABSOLUTE NEUTROPHILS 12.7 thou/uL (1.4-8.2); BASOPHILS 0.6 % (0.0-2.0); HEMATOCRIT 33.5 % (37.0-47.0); HEMOGLOBIN 10.9 gm/dL (12.0-15.0); LYMPHOCYTES 1.8 % (24.0-44.0); MCH 24.7 pg (26.0-34.0); MCHC 32.7 g/dL (28.0-37.0); MCV 75.7 fL (80.0-100.0); MONOCYTES 4.5 % (1.0-8.0); PLATELET COUNT 174 thou/uL (150-400); POLYS 93.1 % (36.0-66.0); RBC 4.43 mil/uL (4.20-5.00); WBC 13.7 thou/uL (4.0-11.0)
[2019-06-16 17:37] LABS: CALCIUM 9.3 mg/dL (8.5-10.1); CREATININE 0.7 mg/dL (0.6-1.0)
[2019-06-16 17:43] LABS: TOTAL BILIRUBIN 3.9 mg/dL (<0.1-1.0); TOTAL PROTEIN 6.4 g/dL (6.4-8.2)
[2019-06-16 18:02] LABS: URINE BILIRUBIN 3+ (Negative); URINE BLOOD 2+ (Negative); URINE CLARITY CLEAR; URINE COLOR YELLOW; URINE GLUCOSE-RANDOM* TRACE (Negative); URINE KETONES 1+ (Negative); URINE NITRITE-REFLEX NEGATIVE (Negative); URINE PROTEIN (DIPSTICK) 3+ (Negative); URINE SPECIFIC GRAVITY 1.025 (1.005-1.035)
[2019-06-16 18:15] LABS: ICTOTEST (BILI CONFIRMATORY) Positive (Negative); URINE LEUKOCYTES-REFLEX 3+ (Negative)
[2019-06-16 18:18] LABS: BACTERIA-REFLEX >30 Many /HPF (None Seen); CASTS None Seen /LPF (None Seen); CRYSTALS None Seen /LPF (None Seen); SQUAMOUS 4-10 Moderate /LPF (0-3); URINE RBC 0-2 Rare /HPF (0-2); URINE WBC-REFLEX >25 Many /HPF (0-5)
[2019-06-16] MEDS ORDERED: TYLENOL EXTRA500 MG PO (19:43)
[2019-06-16] MEDS ORDERED: TUMS PO (19:44)
[2019-06-16] MEDS ORDERED: ZANTAC 150MG T150 MG PO (19:44)
[2019-06-16] MEDS ORDERED: VITAMIN D1000 UNI1 PO (19:45)
[2019-06-16] MEDS ORDERED: MULTI VITAMIN1 EACH PO (19:46)
[2019-06-16 19:49] VITALS: BP 104/55
[2019-06-16 20:10] VITALS: BP 100/55; BP 95/61
[2019-06-16 20:52] VITALS: BP 105/63
[2019-06-16 23:58] VITALS: BP 103/52
[2019-06-17 04:13] VITALS: BP 113/53
[2019-06-17 05:22] LABS: HEMATOCRIT 31.3 % (37.0-47.0); HEMOGLOBIN 10.3 gm/dL (12.0-15.0); MCH 24.7 pg (26.0-34.0); MCHC 32.7 g/dL (28.0-37.0); MCV 75.5 fL (80.0-100.0); RBC 4.15 mil/uL (4.20-5.00); RDW 14.7 % (10.5-14.5)
[2019-06-17 05:32] LABS: CALCIUM 9.4 mg/dL (8.5-10.1); CREATININE 0.6 mg/dL (0.6-1.0); POTASSIUM 3.6 mmol/L (3.5-5.1)
--- NOTE | 2019-06-17 05:52 | NUR ---
PT ADMIT FROM ER VIA FROM [facility]. PT HAS HAD PREVIOUS ISSUES WITH CHOLANGITIS. PT RECEIVED PAIN AND NAUSEA MEDICATION IN ER. AFTER ARRIVAL TO UNIT PT STATES HER PAIN IS AT A 2 AND NO N/V. CONSULT WILL BE CALLED IN THIS AM FOR DR. FLAHERTY AND DR. WOLFE. FOLLOWING POC WITH IVF AND IVPB. PT USES WHEELCHAIR AT FACILITY. PT WAS PLACED ON EXTERNAL CATH DUE TO URINE INCONTINENCE. FALL PRECAUTIONS IN PLACE. HOURLY ROUNDING.
[2019-06-17 07:21] VITALS: BP 116/50
--- NOTE | 2019-06-17 08:19 | EKG ---
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1935 Requested By: Jose Savage Order Number: [id number] MD: Wesly Bowers Measurements Intervals [place] Rate: 97 P: 54 MD: 200 QRS: 59 QRSD: 104 T: 29 QT: 392 QTc: 498 Interpretive Statements Sinus rhythm Abnormal R-wave progression, early transition Inferior infarct, old Compared to ECG 08/19/2018 14:02:41 Sinus tachycardia no longer present Ventricular premature complex(es) no longer present Lateral Q waves are no longer present Electronically Signed On 06-17-2019 8:18:49 CDT by Wesly Bowers [email or web address] <ELECTRONICALLY SIGNED> By: Wesly Bowers MD, [facility] 06/17/19817 11 11 Wesly Bowers MD, [facility] /EPI
[2019-06-17 10:01] LABS: % SATURATION 17 % (20-39); IRON 25 ug/dL (50-170); TIBC 151 ug/dL (250-450)
--- NOTE | 2019-06-17 12:01 | NUR ---
DISCHARGE PLANNING. PATIENT IS A RESIDENT AT [facility]. PLAN IS FOR PATIENT TO RETURN TO [facility] ONCE MEDICALLY READY. CLINICAL INFORMATION FAXED TO [facility]. CALL PLACED TO VERITO TO NOTIFY. FOLLOWING TO ASSIST WITH DISCHARGE NEEDS.
[2019-06-17 13:39] VITALS: BP 128/80
--- NOTE | 2019-06-17 15:37 | NUR ---
INITIAL ASSESSMENT: Received consult due to patient being admitted from [facility]. JIM reviewed chart and spokeo with nursing and attending physician. Pt was admitted and had MRCP today. Pt will have her gall bladder removed. JIM met with pt and grandson at bedside. Introduced role of SW. Pt is alert/orientated. Pt states she has lived at [facility] for about a year. Pt is normally w/c bound. Pt confirms plan to return to [facility] when medically stable. exercise planner to fax info to [facility] for review. SW is following to assist as needed with discharge planning.
[2019-06-17 16:05] VITALS: BP 111/53
--- NOTE | 2019-06-17 16:27 | NUR ---
Assumed care approx. 0700 this AM. No nausea, vomiting or pain reported. Generalized and bilat lower extremity edema noted. Urine dark, cloudy jaime. Two positive blood culture results for gram negative rods called from lab this AM; results reported to Dr. Mccoy. No new orders given. Patient in GI lab this AM for ERCP procedure. Patient drowsy when arrived back from procedure, but more awake now and has been talking to family at bedside. Consent signed for lap petey scheduled for tomorrow morning. Tolerating clear liquids well at this time. Fall precautions in place. Slow progress toward plan of care goals.
[2019-06-17 19:18] VITALS: BP 94/56
--- NOTE | 2019-06-17 23:17 | NUR ---
HELD PT'S LOVENOX DUE TO SURGERY TOMORROW. WILL CONTINUE WITH POC.
[2019-06-17 23:33] VITALS: BP 104/50
[2019-06-18] VITALS (8 sets, daily range): BP systolic 109–161; BP diastolic 61–98
--- NOTE | 2019-06-18 05:24 | NUR ---
FOLLOWING POC WITH IVF AND IVPB ANTIBIOTICS. PT SCHEDULED FOR KATHRIN THIS AM. PT GOT CLORHEX BATH AT 0500 THIS AM IN PREP FOR SURGERY . PT HAS BEEN NPO SINCE 2400. PT IS ASKING ABOUT PROCEDURE AND IF SHE WILL BE ASLEEP DURING IT. EXPLAINED AT DETAIL WHAT THE SURGERY WILL CONSIST OF, PT ACKNOWLEDGED UNDERSTANDING WITH TEACH BACK. PT IS BEDBOUND WHILE HERE AT [facility], BUT USES WHEELCHAIR AT [facility]. VSS, AND PT STATES NO N/V. AT 0530 PT STATES SHE WAS HAVING SOME PAIN, GAVE IV PAIN MEDICATION. WILL REASSESS. HOURLY ROUNDING.
[2019-06-18 05:30] LABS: HEMATOCRIT 29.1 % (37.0-47.0); HEMOGLOBIN 9.4 gm/dL (12.0-15.0); MCH 24.8 pg (26.0-34.0); MCHC 32.4 g/dL (28.0-37.0); MCV 76.4 fL (80.0-100.0); RBC 3.81 mil/uL (4.20-5.00); RDW 15.2 % (10.5-14.5)
[2019-06-18 05:46] LABS: ALBUMIN 2.2 g/dL (3.4-5.0); CALCIUM 9.1 mg/dL (8.5-10.1); CREATININE 0.9 mg/dL (0.6-1.0); POTASSIUM 3.5 mmol/L (3.5-5.1); TOTAL BILIRUBIN 4.1 mg/dL (<0.1-1.0); TOTAL PROTEIN 5.4 g/dL (6.4-8.2)
--- NOTE | 2019-06-18 13:32 | NUR ---
SW reviewed chart and spoke with nursing and attending physician. Pt to have lap petey today. Discharge back to [facility] is anticipated in 1-2 days. SW is following to assist as needed with discharge planning.
--- NOTE | 2019-06-18 19:57 | NUR ---
pt is A&O X3, PT has done :Laparoscopic cholecystetomy w/ intraoperactive cholangiogram today, pt is tolerative the procedure, pt 's abd Lap sites CDI, PT' pain can control by medications, pt is contnuing IV abt, pt denies sob at this time, pt has slowly meeting the care plan gaols.
--- NOTE | 2019-06-18 23:55 | NUR ---
ASSUMED CARE AT 1900, INITIAL ASSESSMENT COMPLETED. PT REPORTS HEADACHE AND POSITIONAL PAIN AT RIGHT SIDE OF ABD. DENIED NAUSEA UNTIL GIVEN HS MEDS OF MIRALAX IN WATER AND DOCUSATE; PT QUICKLY BECAME NAUSEATED AND THREW ALL OF IT BACK UP; GAVE DOSE OF ZOFRAN, NO FURTHER NAUSEA THIS SHIFT. DENIES SOB. GAVE PT A BATH AFTER SHE THREW UP; REPOSITIONED AND PLACED PILLOW UNDER LEGS TO PREVENT HEEL BREAKDOWN. LEFT HAND IV INFILTRATED, REMOVED IV AND RESUMED FLUIDS AT NEW IV SITE. NO OTHER CONCERNS, WILL CONTINUE TO MONITOR.
[2019-06-19 05:00] VITALS: BP 132/79
[2019-06-19 07:44] VITALS: BP 147/82
[2019-06-19 08:52] LABS: ALBUMIN 2.3 g/dL (3.4-5.0); CALCIUM 9.1 mg/dL (8.5-10.1); CREATININE 0.6 mg/dL (0.6-1.0); PHOSPHORUS 2.1 mg/dL (2.5-4.9); POTASSIUM 3.4 mmol/L (3.5-5.1)
[2019-06-19 10:22] LABS: ALBUMIN 2.4 g/dL (3.4-5.0); DIRECT BILIRUBIN 1.5 mg/dL (<0.1-0.3); TOTAL BILIRUBIN 2.1 mg/dL (<0.1-1.0); TOTAL PROTEIN 5.6 g/dL (6.4-8.2)
[2019-06-19 11:30] VITALS: BP 125/72
--- NOTE | 2019-06-19 12:16 | NUR ---
JIM reviewed chart and spoke with nursing and attending physician. Pt is s/p sandra angelo. Pt's diet is being advanced today. Anticipate discharge back to [facility] tomorrow. JIM notified Vandana in admissions at [facility] and requested if they will bring pt back skilled. operations planner to fax clinical updates. JIM is following to assist as needed with discharge planning.
--- NOTE | 2019-06-19 15:18 | PATH ---
[facility] [address] [place] [address] PATHOLOGY RPT PROCEDURE Name: [address] Room #: 355-P [facility] IN M.R.#: [id number] Admission: 06/16/19 Date of : 31 Discharge: Report #: [id number] Path Case #: [id number] [facility] Accession Number: [id number] . 01 Material submitted: . gallbladder - GALLBLADDER . 01 Clinical history: . Common bile duct stones . 02 Diagnosis: Gallbladder, cholecystectomy: - Moderate chronic cholecystitis associated with prominent lymphoid follicles. - Cholelithiasis. . (IUV:mml; 06/19/2019) QL/06/19/2019 . 02 Electronically signed: . Adrianne Renner MD, Pathologist NPI- [id number] . 01 Gross description: . The specimen is received in formalin, labeled "[address], gallbladder". Received is an intact gallbladder measuring 14.0 x 5.2 x 3.8 cm in greatest dimensions displaying a yellow-guzman to pink-florez serosal surface. Opening the specimen reveals a pale guzman, trabeculated mucosa with a gallbladder wall thickness of 0.1 cm. Calculi are present displaying a black and multifaceted appearance, and no masses or lesions are noted grossly. Coat Repair Inspector sections, to include the proximal margin, are submitted in cassette A1. (CAA; 06/18/2019) QAC/QAC . 02 Pathologist provided ICD-10: K80.10 . 02 CPT . 410185 Specimen Comment: A courtesy copy of this report has been sent to Specimen Comment: [phone], , . Specimen Comment: Report sent to ,DR SILVESTRE / DR HERNÁNDEZ Performed at: [address] [id number] MD Elias Lawler MD Phone: [phone] [address] [address] PATHOLOGY RPT PROCEDURE Name: [address] Room #: 355-P [facility] IN M.R.#: [id number] Admission: 06/16/19 Date of : 33 Discharge: Report #: [id number] Path Case #: [id number] Performed at: [address] [id number] MD Adrianne Renner MD Phone: [phone]
[2019-06-19 15:23] VITALS: BP 148/85
--- NOTE | 2019-06-19 16:41 | NUR ---
pt is A&OX3, post 1 day for Lap cholecystetpmy , pt's surgical 5 lap sites is intact, no drange, pt is continuing IV abt and pain managment, pt's vs are stable at this time, pt denies pain and n/v at this time, pt has slowly meet care plan goals.
[2019-06-19 19:15] VITALS: BP 130/70
[2019-06-20 04:04] VITALS: BP 151/89
[2019-06-20 05:22] LABS: ALBUMIN 2.4 g/dL (3.4-5.0); DIRECT BILIRUBIN 1.3 mg/dL (<0.1-0.3); TOTAL BILIRUBIN 1.8 mg/dL (<0.1-1.0); TOTAL PROTEIN 5.2 g/dL (6.4-8.2)
--- NOTE | 2019-06-20 05:47 | NUR ---
ASSUMED CARE AT 1900, ASSESSMENTS COMPLETED PER PROTOCOL. PT C/O PAIN RIGHT SIDE OF ABD TWICE OVERNIGHT, GIVEN NORCO. GAVE SCHEDULED MIRALAX AND DOCUSATE, PT REPORTED FEELING GASSY AND CRAMPY, PLACED ON BEDPAN TWICE BUT UNABLE TO HAVE A BM, DOES C/O FEELING SLIGHTLY NAUSEATED SINCE SHE HASN'T BEEN ABLE TO HAVE A BM YET. ENCOURAGING PT TO TURN AND HAVE LEGS ELEVATED TO PROTECT HEELS. LARGE AMOUNT OF DARK GOMEZ URINE OUT VIA EXTERNAL CATH. PER SURGERY THIS AM, PT IS CLEAR TO D/C TODAY. NO OTHER CONCERNS, WILL CONTINUE TO MONITOR.
[2019-06-20 07:25] VITALS: BP 130/73
--- NOTE | 2019-06-20 09:26 | P ---
[facility] [place] [address] PROCEDURE REPORT Name: EZIO BAILEY Room #: 355-P ADM IN M.R.#: [id number] Admission: 06/16/19 Attend Phys: Fredrick Mccoy MD Discharge: Date of : 33 Report #: [id number] THIS REPORT FOR: //name// CC: Fredrick Polanco DATE OF SERVICE: 06/16/2019 ERCP RFPORT BRIEF HISTORY: The patient is an 84-year-old woman who presented with abdominal pain, nausea and vomiting, was found to have elevated bilirubin and abnormal transaminases. Imaging studies including a CT and MRCP revealed dilated biliary tree with evidence of stone approximately 1 cm plus multiple other smaller stones. She also had positive blood cultures and elevated white count. PREOPERATIVE DIAGNOSES: Cholangitis and choledocholithiasis. POSTOPERATIVE DIAGNOSES: 1. Choledocholithiasis. 2. Purulent material and bile duct consistent with cholangitis. 3. Markedly dilated extrahepatic and proximal intrahepatic biliary system. 4. Due to diverticula. MEDICATIONS: Intubation general anesthesia. SPECIMEN: Multiple stones removed from the bile duct and not recovered from the small bowel. ESTIMATED BLOOD LOSS: None. PROCEDURE: ERCP with endoscopic sphincterotomy and extraction of multiple stones. FINDINGS: Prior to the procedure, procedure of ERCP and sphincterotomy was discussed with the patient as well potential risks and its complications. She indicates she understands and desires to proceed. DESCRIPTION OF PROCEDURE: The patient was introduced with general anesthesia, intubated, and placed in the prone position. Subsequently, the Olympus side-viewing endoscope was inserted in cervical esophagus and advanced into the esophagus across the stomach, across the pylorus into the duodenum. The papilla was identified. It was noted to be prominent in size and somewhat bulging. However, it overall had normal appearing mucosa. 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 The papilla was not in the diverticulum, but it was next [facility] [address] [place] [address] PROCEDURE REPORT Name: EZIO BAILEY Eduarda Room #: 355-P [facility] IN ..#: [id number] Admission: 06/16/19 Attend Phys: Fredrick Mccoy MD Discharge: Date of : 33 Report #: [id number] to the papilla, which actually allowed as to obtain better views of the intraduodenal segment of the common bile duct. We cannulated with a sphincterotome and obtained deep cannulation. Contrast was injected. Multiple stones were seen. There appeared to be at a minimum 2 large stones in the distal duct. The biliary tree was dilated throughout. There was filling of the gallbladder as well. We then completed a sphincterotomy. We were able to obtain a very generous sphincterotomy in the range of 1-1.5 cm. Immediately, sludge-like material came out of the bile duct as well as multiple small stones. Some were pigmented, others were cholesterol stones. Lots of mucus parts of the sphincterotomy as well and intermittently clumps of whitish material consistent with purulent material exuded from the biliary tree. We initially used a balloon. We were able to inflate the balloon up to 20 mm. It was tied at that level. We were able to pull the balloon somewhat easier one is at 18 mm. We made several passes with the balloon and the above-mentioned material continued to pass. However, the large stones did not pass. Through the sphincterotomy incision, I could see a large stone in the distal duct. We then exchanged for a 3.0 cm basket and dragged the duct on multiple occasions and pulled out multiple columns of small stones as well as 2 large stones. After large stones were removed, we went back to the balloon and dragged on several more occasions and continued to retrieve small stones. We then filled the balloon and pulled the inflated balloon through the biliary tree with injection of contrast. One or 2 small stones were identified and these were removed with the balloon catheter. Finding was felt the duct was clear. We injected. She has a very tortuous extrahepatic biliary tree. We used half strength contrast. No additional significant filling defects were seen. However, due to the size of the duct and tortuosity, there are likely still small stones and sludge present. However, the large stones had been cleared, the duct was draining well and I had anticipated the smaller stones and sludge should pass without difficulty. The scope was withdrawn. The patient tolerated the procedure well. DISPOSITION: Bile duct cleared as described above after sphincterotomy. We will allow her to start clear liquids at [address] Velásquez. If the patient does well, anticipate cholecystectomy tomorrow. <ELECTRONICALLY SIGNED> By: Jam Hawk MD 06/20/19 0926 1215 1355 Jam Hawk MD /keely
[2019-06-20] MEDS ORDERED: CEFDINIR300 MG PO (10:46)
[2019-06-20 11:39] VITALS: BP 143/87
--- NOTE | 2019-06-20 13:05 | NUR ---
DISCHARGE NOTE: JIM reviewed chart and spoke with nursing and attending physician. Pt is medically stable for discharge back to [facility] today. Pt will return using her skilled benefit. JIM met with pt at bedside to discuss discharge. Pt is aware and is agreeable with plan. JIM faxed final discharge orders/summary to [facility] and notified Vandana in admissions. Awaiting transportation time. Chart copy ordered. Nursing to call report. JIM is following to finalize discharge.
--- NOTE | 2019-06-20 15:07 | NUR ---
ASSUMED CARE OF PT AT 0700. PT ALERT AND ORIENTED COMPLAINS OF ABDOMINAL CRAMPING. NO BM AFTER MIRALAX. INSTRUCTED TO GIVE ONE TIME FLEETS ENEMA. 2 SMALL BM. IV ABX INFUSING PER ORDER. ANTICIPATE D/C BACK TO [facility] AT [id number].
--- NOTE | 2019-06-22 11:26 | HC ---
[facility] [place] [address] CONSULTATION Name: EZIO BAILEY Room #: 355-P [facility] IN M.R.#: [id number] Admission: 06/16/19 Attend Phys: Fredrick Mccoy MD Discharge: 06/20/19 Date of : 31 Report #: [id number] THIS REPORT FOR: //name// CC: Fredrick Polanco DATE OF SERVICE: 06/17/2019 CONSULTING PHYSICIAN: Dr. Christiano Velásquez, General Surgery. ASSESSMENT: 1. Ascending cholangitis. 2. Choledocholithiasis. 3. Duodenal diverticulum. 4. Urinary bladder thickening. PLAN: 1. Thank you for the consultation. 2. Planning for laparoscopic cholecystectomy on 06/18/2019 at 8:30 a.m. [address] D[address] Dr. Alvarado Faria on the phone who just completed ERCP and was successful and sphincterotomy and removing several common bile duct stones as well as biliary sludge and biliary purulence. 4. We will follow along. 5. Consider Urology consult for bladder findings on CT scan. 6. The patient will need further workup of a right kidney nodule. HISTORY OF PRESENT ILLNESS: The patient is a very pleasant 84-year-old female who presented with worsening abdominal pain. The patient reports that she has been having abdominal pain in the epigastrium and bilateral upper quadrants for the last 3 months. The pain worsened in the last 24-48 hours and she began also having nausea and vomiting. She became concerned, so she presented to the ER. In the ER, ultrasound, CT scan was performed and demonstrated biliary ductal dilatation as well as a stone in the distal CBD. Gastroenterology and General Surgery was consulted for further evaluation. The patient underwent an ERCP this morning and Gastroenterology was successful in removing the common bile duct stones. The patient is not the best historian when asked about her medical history. Therefore, most of the history was obtained from the chart. PAST MEDICAL HISTORY: 1. DVT, left upper extremity, the patient denies being on anticoagulants at this point. 2. History of a sacral wound, status post sacral flap. 3. Morbid obesity. [facility] [address] [place] [address] CONSULTATION Name: LYNNEZIO Room #: 355-P [facility] IN ..#: [id number] Admission: 06/16/19 Attend Phys: Fredrick Mccoy MD Discharge: 06/20/19 Date of : 33 Report #: [id number] 4. Wheelchair bound. 5. Hypertension. 6. Gout. 7. Grade 1 diastolic dysfunction. PAST SURGICAL HISTORY: 1. ERCP on 06/17/2019. 2. Hysterectomy. 3. Sacral wound flap. 4. ORIF, left hip. 5. Ventral hernia repair. SOCIAL HISTORY: No alcohol, no tobacco use. She resides in a specialty [facility]. FAMILY HISTORY: Daughter with breast cancer, . REVIEW OF SYSTEMS: CONSTITUTIONAL: Positive fevers. No weight loss. HEENT: No nosebleeds, no sinusitis. Positive headaches. CARDIOVASCULAR: Denies chest pain or palpitations. RESPIRATORY: Denies cough or pneumonia. GASTROINTESTINAL: Positive nausea and vomiting and abdominal pain. GENITOURINARY: Denies trouble urinating or pain with urination. MUSCULOSKELETAL: Denies joint pain, muscle cramps. HEMATOLOGIC: Denies easy bruising, easy bleeding, positive history of DVT. INTEGUMENTARY: No easy bruising or easy bleeding. No rashes or bruising. NEUROLOGIC: Positive headaches. Denies dizziness, denies numbness. ENDOCRINE: No heat intolerance or cold intolerance. IMMUNOLOGY: Denies latex allergy or seasonal allergies. PSYCHIATRIC: Denies depression or anxiety. PHYSICAL EXAMINATION: VITAL SIGNS: Temperature 36.8, pulse 82, respiratory rate 16, blood pressure 116/50, pulse ox 93%. GENERAL: No apparent distress, alert and oriented x 3. HEENT: Intact. EOMI. NECK: Soft, normal range of motion. PULMONARY: Nonlabored breathing, equal excursion bilaterally. CARDIAC: Regular rate and rhythm, hemodynamically stable. ABDOMEN: Soft, tender to palpation in bilateral upper quadrants with right upper quadrant greater than left upper quadrant, positive morbid obesity, positive ventral hernia incision scar, well healed. EXTREMITIES: No clubbing, cyanosis or edema. Morbidly obese. PSYCHIATRIC: Normal mood and affect. NEUROLOGIC: Grossly intact. Cranial nerves 2-[address] [address] CONSULTATION Name: EZIO BAILEY Room #: 355-P DIS IN M.R.#: [id number] Admission: 06/16/19 Attend Phys: Fredrick Mccoy MD Discharge: 06/20/19 Date of : 33 Report #: [id number] MUSCULOSKELETAL: 5/5 strength in upper extremities and lower extremities bilaterally. LYMPHATICS: No cervical, inguinal or supraclavicular lymphadenopathy. LABORATORY DATA: White blood count 19, hemoglobin 10.3, hematocrit 31.3, platelets 180. Sodium 139, potassium 3.6, bicarbonate 27, creatinine 0.6, GFR 115. IMAGIN. Abdominal ultrasound. Impression: A. Cholelithiasis with hydropic gallbladder containing sludge and stones. No pericholecystic fluid is demonstrated; however, the gallbladder wall shows thickening to 4 mm with positive sonographic Haywood sign, which may represent early changes of acute cholecystitis. Clinical correlation recommended. 2. Abdominal/pelvis CT. Impression: A. Prominent biliary dilation is noted with the common bile duct measuring 1.8 cm. There are findings suggesting choledocholithiasis, which suggested 1-cm stone in the distal common bile duct. The gallbladder is hydropic with cholelithiasis. No definite inflammatory changes seen on CT to suggest cholecystitis. Clinical correlation recommended. B. Mild size hiatal hernia, hernia repair is noted in the anterior abdominal wall with fat containing right inguinal hernia. The fluid collection in soft tissue is extending along the posterior aspect of the distal sacrococcygeal region felt to be chronic findings similar to the scan 2018. Clinical correlation is recommended. C. Bladder shows abnormal enhancement and thick walled appearance with irregularity and inflammation. Clinical correlation is recommended whether this represents severe cystitis or this could represent an underlying bladder tumor. The findings are concerning with malignancy due to irregularity. Cystoscopy may be warranted. D. Diverticulosis without findings of diverticulitis. There is prominent spondylosis along the osteoporosis of the spine. 3. Abdominal MRI. Impression: A. Choledocholithiasis. There are a number of small distal common bile duct stones. The largest measures approximately 1 cm. Common bile duct measures as much as 1.6 cm in the attila hepatis. There is moderate intrahepatic bile duct dilatation, greater in the left hepatic lobe. B. Hydropic enlargement of the gallbladder, which contains numerous gallstones. The gallbladder measures 14.7 cm in length. The wall does not appear particularly thickened. There is no pericholecystic fluid. C. Indeterminate 1.4-cm nodule arising from the posterior upper right kidney. This does not have the appearance of a cyst. A formal CT scan of the abdomen without contrast is recommended for better characterization. [facility] [address] [place] [address] CONSULTATION Name: BAILEYEZIO Room #: 355-P DIS IN M.R.#: [id number] Admission: 06/16/19 Attend Phys: Fredrick Mccoy MD Discharge: 06/20/19 Date of : 31 Report #: [id number] Thank you for the consultation. Please do not hesitate to contact me any time. <ELECTRONICALLY SIGNED> By: Christiano Velásquez MD 06/22/19 1126 1221 1519 Christiano Velásquez MD /nt
== END 2019-06-20 16:57 | DRG 417 ==
LOC: ER 16:58 → 3W 19:32 → EROBS 19:32 → 3W 20:36
PROVIDERS: Emergency Medicine; Internal Medicine Gastroenterology; Nurse Practitioner; Nurse Practitioner Family; Specialist; Surgery; ADMIT Hospitalist
PROC: 0FC98ZZ Extirpation of Matter from Common Bile Duct, Via Natural or Artificial Opening Endoscopic (ICD-10-PCS; principal; 2019-06-16)
PROC: 0FT44ZZ Resection of Gallbladder, Percutaneous Endoscopic Approach (ICD-10-PCS; 2019-06-18)
PROC: BF121ZZ Fluoroscopy of Gallbladder using Low Osmolar Contrast (ICD-10-PCS; 2019-06-18)
DX: K80.42 Calculus of bile duct with acute cholecystitis without obstruction (principal); E43 Unspecified severe protein-calorie malnutrition; R17 Unspecified jaundice; I10 Essential (primary) hypertension; E80.6 Other disorders of bilirubin metabolism; M19.90 Unspecified osteoarthritis, unspecified site; M10.9 Gout, unspecified; K57.10 Diverticulosis of small intestine without perforation or abscess without bleeding; N31.2 Flaccid neuropathic bladder, not elsewhere classified; E66.01 Morbid (severe) obesity due to excess calories; Z66 Do not resuscitate; D50.9 Iron deficiency anemia, unspecified; Z86.718 Personal history of other venous thrombosis and embolism; Z87.81 Personal history of (healed) traumatic fracture; Z68.38 Body mass index [BMI] 38.0-38.9, adult; Z90.710 Acquired absence of both cervix and uterus; Z80.3 Family history of malignant neoplasm of breast; Z79.899 Other long term (current) drug therapy
CPT/HCPCS: 10879; 50010; 50101; 50411; 50555; 50558; 51489; 51975; 52265; 52266; 53307; 53310; 54022; 54118; 55245; 56462; 56525; 56526; 56674; 62110; 62900; 70005